=== PATIENT | male | born 1975 | race Caucasian/White ===

== ENCOUNTER 2022-06-07 08:45 | Emergency (ER) | payer BC, SELFPAY ==
[2022-06-07 09:09] VITALS: BP 125/74; PULSE 68; RESP 16; TEMP 36.6; O2SAT 98
--- NOTE | 2022-06-07 10:10 | ED.GENADUL_ITS ---
Discharge Plan Disposition Patient Disposition: Home Condition: Improving Discharge Details Clinical Impression: Abrasion, corneal Primary Care Provider: None,None ED Provider: Germain Mackenzie Home Meds and New Rx's Prescriptions: New erythromycin 5 mg/gram (0.5 %) ointment 0.5 inch ophthalmic (eye) QID Qty: 3.5 0RF Rx Instructions: 7 days Discharge Instructions Instructions: Corneal Abrasion (ED) Additional Instructions: Erythromycin as directed. Avoid rubbing your eyes. [id number] Tylenol and/or Motrin as directed for discomfort. You may also use [id number] lubricating drops as directed for symptomatic control, try not to use within the same hour of the erythromycin eye ointment. Please watch for new or worsening symptoms and return to the ER for any concerns. Medical Decision Making 47-year-old gentleman who does not wear contacts or glasses presents after kristen ring brush in his yard yesterday and a small branch grazed across his eye. Visual acuity is 20/20 left and right, 20/13 bilaterally. Discomfort resolved after tetracaine. Evaluation reveals 2 separate corneal abrasions. We will treat with erythromycin. Otherwise patient appears well, nontoxic, has no acute concerns. Globe intact, no hyphema. Standard discharge and return precautions were provided. Patient understands, is agreeable to this plan, and has no additional questions or concerns upon discharge. This documentation was generated using [employer] system, please disregard any oddities of phrase or misspellings. Sign Out No HPI General Mode of arrival: ambulatory . Date/Time Provider Initiated Documentation: 06/07/22 09:15 . Limitations to Documentation: no limitations . Information obtained by: patient . History of Present Illness 47 year old M presents to the emergency department with the chief complaint of R eye pain, described as moderate, with intensity rated at 4. Quality is described as aching, and is localized to the eyes and right. Patient started experiencing this day(s) (1) and it has been constant. No relieving factors improve symptom(s), No exacerbating factors reported . Patient notes no other symptoms.. Patient did receive the following treatments prior to arrival, none Related Data Home Medications Medication Instructions Recorded Confirmed erythromycin 5 mg/gram (0.5 %) eye 0.5 inch ophthalmic (eye) QID #3.5 06/07/22 ointment grams Previous Rx's Medication Instructions Recorded erythromycin 5 mg/gram (0.5 %) eye 0.5 inch ophthalmic (eye) QID #3.5 06/07/22 ointment grams Allergies Allergy/AdvReac Type Severity Reaction Status Date / Time No Known Allergies Allergy Unverified 06/07/22 09:14 General Stated Complaint: EyeProblem ELIAS: 4 Review of Systems Constitutional Constitutional: Denies fever(s) and Denies headache(s) Eyes Eyes: Denies blurry vision, Reports irritation and Reports photophobia ENT Ears, Nose, Mouth, and Throat: Denies headache(s) Integumentary/Breasts Skin/Breast: Denies rash Neurologic Neurologic: Denies headache(s) PFSH All Active Problems (Updated 06/07/22 @ 10:28 by KORTNEY River) Abrasion, corneal (Acute) Social History Smoking/Tobacco Use Status: Current every day Tobacco Type: e-cigarettes Smoking risk assessment performed?: Yes Alcohol Intake: current Alcohol Intake frequency: holidays/special occasions only Drug use: Daily Substance use type: marijuana Do you feel safe at home: Yes Exam Const General: cooperative, healthy appearing, comfortable and no acute distress Orientation: alert and awake [facility] Head: normal to inspection, normocephalic and atraumatic Face and sinus: normal facial exam Mouth: moist mucous membranes Eyes Alignment and Position: alignment normal Periorbital: periorbital findings normal Eyelids: eyelids normal and other (Right eyelid flipped) Conjunctivae: conjunctival abnormality right conjunctival injection (Minimal) Sclera: sclerae normal Cornea: corneas abnormal on the right fluorescein used and abrasion and fluorescein used Pupils: PERRL EOM: EOM intact bilaterally Direct ophthalmoscopy: normal light reflex Eyes/upper lids images: 1. Abrasion 2. Abrasion Neck Neck: normal visual inspection, full ROM, trachea midline and supple Resp Effort & Inspection: normal respiratory effort and able to speak in complete sentences Skin General skin exam: no rashes or lesions noted Neuro General: patient alert, patient awake, moves all extremities and no focal motor deficits Sensory Exam: no sensory deficits noted Psych Appearance: grossly normal Mental Status: mental status grossly normal Course Vital Signs Vital signs: Vital Signs Temperature 36.6 C 06/07/22 09:09 Pulse 68 06/07/22 09:09 Respiratory Rate 16 06/07/22 09:09 Blood Pressure 125/74 06/07/22 09:09 Pulse Oximetry 98 06/07/22 09:09 Temperature 36.6 C 06/07/22 09:09 Temperature Source Temporal Artery Scan 06/07/22 09:09 Pulse 68 06/07/22 09:09 Respiratory Rate 16 06/07/22 09:09 Respiratory Effort Non-Labored 06/07/22 09:13 Blood Pressure 125/74 06/07/22 09:09 Blood Pressure Position Sitting 06/07/22 09:09 Pulse Oximetry 98 06/07/22 09:09 Oxygen Delivery Method Room Air 06/07/22 09:09 Oxygen Flow Rate 0 06/07/22 09:09 Pain Level 5 06/07/22 09:09 PAWSS Have you Been Recently Intoxicated or Drunk Within the Last 30 days?: No Have you Ever Experienced Previous Episodes of Alcohol Withdrawal?: No Have you ever Experienced Withdrawal Seizures?: No Have you ever Experienced Delirium Tremens(DT)s?: No Have you ever undergone Alcohol Rehabilitation Treatment (i.e, inpt ot outpatient treatment programs)?: No Have you ever Experienced Blackouts?: No Have you ever Combined Alcohol with other Downers within the last 90 days?: No Have you ever Combined Alcohol with any other Substance of Abuse during the last 90 days?: No Result: 0
[2022-06-07] MEDS: Fluorescein STRIPS 100/BOX 1 MG (10:25)
[2022-06-07] MEDS: Tetracaine 0.5% 4 ML BTL (10:25)
== END 2022-06-07 10:33 | disposition home or self-care (01) ==
PROVIDERS: Emergency Provider Physician Assistant
DX: S05.01XA Injury of conjunctiva and corneal abrasion without foreign body, right eye, initial encounter (principal); X58.XXXA Exposure to other specified factors, initial encounter
CPT/HCPCS: 99283